=== PATIENT | female | born 1930 | race Caucasian/White ===

== ENCOUNTER 2019-04-15 10:30 | Inpatient (IN) | payer MEDICARE, BC ==
[~2019-04-15] VITALS: Ht 154.9 cm; Wt 78.6 kg
[2019-04-15 11:26] VITALS: BP 108/69
[2019-04-15 14:04] LABS: URINE APPEARANCE HAZY; URINE BILIRUBIN NEGATIVE (NEGATIVE); URINE BLOOD 250 ery/uL (NEGATIVE); URINE COLOR YELLOW; URINE GLUCOSE NEGATIVE (NEGATIVE); URINE KETONE NEGATIVE (NEGATIVE); URINE LEUKOCYTE ESTERASE NEGATIVE (NEGATIVE); URINE MUCUS PRESENT (NOT PRESENT); URINE NITRATE NEGATIVE (NEGATIVE); URINE PROTEIN(semi-quant) 1+ mg/dL (NEGATIVE); URINE UROBILINOGEN NORMAL (NORMAL)
[2019-04-15 18:20] VITALS: BP 115/72
[2019-04-16 06:04] VITALS: BP 112/69
[2019-04-16 06:13] LABS: HEMATOCRIT 35.1 % (37.0-47.0); HEMOGLOBIN 11.4 g/dL (12.5-16.0); MEAN CELL VOLUME 94 fl (78-100); MEAN CORPUSCULAR HEMOGLOBIN 31 pg (27-31); MEAN CORPUSCULAR HGB CONC 33 g/dL (33-37); MEAN PLATELET VOLUME 8.9 fl (7.4-10.4); PLATELET COUNT 267 K/mm3 (130-400); RED BLOOD COUNT 3.74 M/mm3 (4.10-5.30)
[2019-04-16 06:36] LABS: POTASSIUM 3.7 mmol/L (3.5-5.1)
[2019-04-16 06:37] LABS: CALCIUM 8.1 mg/dL (8.3-10.5)
[2019-04-16 06:45] LABS: LYMPHOCYTE 4 % (20-51); MONOCYTE 6 % (3-10); NEUTROPHILS 89 % (42-75)
== END 2019-04-16 09:07 | disposition other institution (70) | DRG 948 ==
LOC: MED/SURG 10:30
PROVIDERS: Nurse Practitioner Family; ADMIT Nurse Practitioner Primary Care
DX: R53.81 Other malaise (principal); E03.9 Hypothyroidism, unspecified; Z88.8 Allergy status to other drugs, medicaments and biological substances; F03.90 Unspecified dementia, unspecified severity, without behavioral disturbance, psychotic disturbance, mood disturbance, and anxiety; F32.9 Major depressive disorder, single episode, unspecified; I11.0 Hypertensive heart disease with heart failure; I50.9 Heart failure, unspecified
CPT/HCPCS: J1650

== ENCOUNTER → 2019-04-15 | Outpatient (CLI) | payer MEDICARE, BC ==
[2019-04-11 15:00] VITALS: BP 147/80
[~2019-04-15] MED LIST: AZULFIDINE500 M1 PO; LEVAQUIN 5500 MG/TA1 PO; LEVOXYL100 MCG PO; LISINOPRIL AND1 TA1 PO; MEMANTINE HCL10 MG PO; MIRALAX17 GM PO; MOBIC15 M1 PO; NAMENDA10 MG PO; NAMENDA5 MG PO; PREDNISONE 5MG5 MG PO; ZESTRIL5 M1 PO; ZYLOPRIM100 MG PO
[2019-04-15 09:21] LABS: ALBUMIN 3.2 g/dL (3.4-4.8); POTASSIUM 3.7 mmol/L (3.5-5.1)
[2019-04-15 09:22] LABS: CALCIUM 8.3 mg/dL (8.3-10.5)
[2019-04-15 09:23] LABS: HEMATOCRIT 37.2 % (37.0-47.0); HEMOGLOBIN 11.9 g/dL (12.5-16.0); MEAN PLATELET VOLUME 9.2 fl (7.4-10.4); RED BLOOD COUNT 3.98 M/mm3 (4.10-5.30); WHITE BLOOD COUNT 9.8 K/mm3 (4.8-10.8)
[2019-04-15 09:24] LABS: TOTAL PROTEIN 5.7 g/dL (6.2-8.1)
[2019-04-15 09:25] LABS: TOTAL BILIRUBIN 0.5 mg/dL (0.2-1.2)
== END ==
LOC: LAB 08:45
PROVIDERS: Nurse Practitioner Primary Care
DX: A41.9 Sepsis, unspecified organism (principal); E03.9 Hypothyroidism, unspecified